=== PATIENT | male | born 1990 | race Caucasian/White ===

== ENCOUNTER 2017-06-29 19:34 | Emergency (ER) | payer SELFPAY ==
[2017-06-29] MEDS ORDERED: Sodium Chloride 0.9% 1000 ML 1,000 ML IV STA ×2 (20:16→21:11)
[2017-06-29] MEDS ORDERED: Sodium Chloride 0.9% 1000 ML 1,000 ML ONE (20:20)
[2017-06-29 20:25] LABS: BASOPHIL % 0.2 % (0.0-0.4); Basophil (Absolute #) 0.02 (0-0.4); Eosinophil % 1.1 % (0.00-5.0); Granulocyte Absolute (ANC) 6.09 (1.4-6.9); Granulocytes % 68.4 % (36.0-66.0); Hematocrit 49.2 % (42-50); Hemoglobin 16.5 gm/dl (12.5-18.0); Lymphocyte (Absolute #) 2.01 (1.0-4.6); Lymphocytes % 22.6 % (24.0-44.0); Mean Cell Volume 89.6 fl (78-100); Mean Corpuscular Hemoglobin 30.1 pg (26-32); Mean Corpuscular Hgb Concent. 33.5 g/dl (32-36); Mean Platelet Volume 10.3 fl (6-9.5); Monocyte (Absolute #) 0.69 (0.0-1.3); Monocytes % 7.7 % (0.0-12.0); Platelet Count 256 K/mm3 (150-450); Red Blood Count 5.49 M/mm3 (4.1-5.6); Red Cell Distribution Width 13.3 % (11.5-14.0); White Blood Count 8.9 K/mm3 (4.0-10.5)
--- NOTE | 2017-06-29 20:30 | ERPHSYRPT ---
- History of Present Illness Time Seen by Provider: 06/29/17 20:00 Source: patient Exam Limitations: clinical condition Patient Subjective Stated Complaint: Dysuria Triage Nursing Assessment: Pt states hx of kidney stones, seen at [place] in [place] for complaint. Pt states dysuria and hematuria since onset of pain 10 days ago. Pt states he was told he had a stone trapped in ureter on left side. Pt states pain is 2/10 at this time, no distress noted. Pt states that he has never had return of normal urine output since onset of pain. Physician History: PATIENT WITH A HISTORY OF KIDNEY STONES SINCE DECEMBER 2016, RECENTLY EVALUATED IN EMERGENCY AT [facility] 10 DAYS AGO, PLACED ON FLOMAX, TORADOL AND NORCO. ADMITS TO HAVING HEMATURIA EARLIER TODAY. DENIES FEVER OR CHILLS. Timing/Duration: today Activites at Onset: none Quality: sharpness, stabbing Onset Location: left flank, other (LEFT SIDED ABDOMINAL PAIN) Severity of Pain-Max: mild Severity of Pain-Current: mild Modifying Factors: Improves With: other (HEMATURIA) Prior abdominal problems: similar symptoms Sexual intercourse history: non-contributory Allergies/Adverse Reactions: latex Allergy (Mild, Verified 06/29/17 19:57) Hives citalopram [From Celexa] Allergy (Unknown, Verified 06/29/17 19:57) Home Medications: Hydrocodone Bit/Acetaminophen [[place] 5-325 Tablet] 1 each PO 06/29/17 [History] Ketorolac Tromethamine [Toradol] 10 mg PO DAILY 06/29/17 [History] Tamsulosin HCl 0.4 mg [Flomax 0.4 MG] 0.4 mg PO DAILY 06/29/17 [History] Hx Tetanus, Diphtheria Vaccination/Date Given: No Hx Influenza Vaccination/Date Given: No Hx Pneumococcal Vaccination/Date Given: No Immunizations Up to Date: No - Past Medical History Pertinent Past Medical History: No Neurological History: No Pertinent History ENT History: No Pertinent History Cardiac History: No Pertinent History Respiratory History: No Pertinent History Endocrine Medical History: No Pertinent History Musculoskeletal History: No Pertinent History GI Medical History: No Pertinent History History: Other Psycho-Social History: No Pertinent History Male Reproductive Disorders: No Pertinent History Other Medical History: Kidney stone, pylonephritis - Past Surgical History Past Surgical History: Yes Cardiac: No Pertinent History Respiratory: No Pertinent History Gastrointestinal: No Pertinent History Genitourinary: No Pertinent History Musculoskeletal: No Pertinent History Male Surgical History: No Pertinent History - Social History Smoking Status: Never smoker Exposure to second hand smoke: No Drug Use: none Patient Lives Alone: No - Review of Systems Constitutional: No Fever, No Chills Ears, Nose, & Throat: No Symptoms Respiratory: No Symptoms Cardiac: No Symptoms Abdominal/Gastrointestinal: Abdominal Pain Genitourinary Symptoms: Dysuria, Flank Pain, Other (HEMATURIA) Neurological: No Symptoms Psychological: No Symptoms - Nursing Vital Signs Nursing Vital Signs: Initial Vital Signs Temperature 98.2 F 06/29/17 19:44 Pulse Rate 92 H 06/29/17 19:44 Respiratory Rate 14 06/29/17 19:44 Blood Pressure 127/80 06/29/17 19:44 O2 Sat by Pulse Oximetry 100 06/29/17 19:44 Pain Scale Pain Intensity 0 - Physical Exam General Appearance: mild distress Eye Exam: PERRL/EOMI Ears, Nose, Throat Exam: normal ENT inspection Neck Exam: normal inspection Respiratory Exam: normal breath sounds Cardiovascular Exam: regular rate/rhythm Gastrointestinal/Abdomen Exam: soft, tenderness (LEFT LATERAL ABDOMEN) Male Genital Exam: normal genitalia Back Exam: normal inspection, CVA tenderness (MODERATE LEFT LATERAL CVA TENDERNESS) Extremity Exam: normal inspection Neurologic Exam: alert, oriented x 3, cooperative SpO2 Interpretation: normal SpO2: 100 Oxygen Delivery: Room Air - CT Exams Abdomen/Pelvis CT Interpretation: Tele-radiologist Report (SMALL NONOBSTRUCTIVE STONES ARE PRESENT IN THE KIDNEYS BILATERALLY,NO DISTAL URETERAL OAR BLADDER STONES IDENTIFIED, APPENDIX NORMAL ) Ordered Tests: Active Orders 24 hr Category Date Time Status ABDOMEN AND PELVIS W/0 CONTRAS [CT] Stat Exams 06/29/17 20:17 Taken BMP Stat Lab 06/29/17 20:10 Completed CBC W DIFF Stat Lab 06/29/17 20:10 Completed UA W/RFX UR CULTURE Stat Lab 06/29/17 20:17 Ordered Urine Triage Profile Stat Lab 06/29/17 20:17 Ordered Medication Summary Generic Name Dose Route Start Last Admin Trade Name Freq PRN Reason Stop Dose Admin Sodium Chloride 1,000 mls @ 999 mls/hr 06/29/17 21:11 Sodium Chloride 0.9% 1000 Ml IV 06/29/17 22:11 .Q1H1M STA Discontinued Medications Generic Name Dose Route Start Last Admin Trade Name Tan PRN Reason Stop Dose Admin Sodium Chloride 1,000 mls @ 999 mls/hr 06/29/17 20:16 06/29/17 20:23 Sodium Chloride 0.9% 1000 Ml IV 06/29/17 21:16 999 mls/hr .Q1H1M STA Administration Sodium Chloride Confirm 06/29/17 20:20 Sodium Chloride 0.9% 1000 Ml Administered 06/29/17 20:21 Dose 1,000 mls @ ud .ROUTE .STK-MED ONE Lab/Rad Data: Laboratory Result Diagrams 06/29/17 20:10 06/29/17 20:10 Laboratory Results 06/29/17 06/29/17 Range/Units 20:10 20:10 WBC 8.9 (4.0-10.5) K/mm3 RBC 5.49 (4.1-5.6) M/mm3 Hgb 16.5 (12.5-18.0) gm/dl Hct 49.2 (42-50) % MCV 89.6 (78-100) fl MCH 30.1 (26-32) pg MCHC 33.5 (32-36) g/dl RDW 13.3 (11.5-14.0) % Plt Count 256 (150-450) K/mm3 MPV 10.3 H (6-9.5) fl Gran % 68.4 H (36.0-66.0) % Lymphocytes % 22.6 L (24.0-44.0) % Monocytes % 7.7 (0.0-12.0) % Eosinophils % 1.1 (0.00-5.0) % Basophils % 0.2 (0.0-0.4) % Basophils # 0.02 (0-0.4) Sodium 136 (136-145) mEq/L Potassium 4.6 (3.5-5.1) mEq/L Chloride 104 (98-107) mEq/L Carbon Dioxide 18.3 L (21-32) mEq/L Anion Gap 18.7 H (5-15) MEQ/L BUN 16 (9-20) mg/dL Creatinine 0.73 (0.55-1.30) mg/dl Estimated GFR > 60 ML/MIN Glucose 82 (70-110) MG/DL Calcium 9.7 (8.5-10.1) mg/dL - Progress Progress Note: 06/29/17 20:34 IV NORMAL SALINE 1 LITER BOLUS , DENIES PAIN THROUGHOUT EMERGENCY ROOM VISIT 06/29/17 21:40 Counseled pt/family regarding: lab results, diagnosis, need for follow-up, rad results - Departure Time of Disposition: 21:50 Departure Disposition: Home Clinical Impression: BILATERAL NONOBSTRUCTION RENAL STONES Condition: Stable Critical Care Time: No Referrals: Provider,Unknown [Primary Care Provider] - Additional Instructions: CONTINUE ALL CURRENT MEDICATIONS. FOLLOWUP WITH YOUR PRIMARY CARE PROVIDER AND UROLOGIST AT HOME. VOID THROUGH STRAINER OVER THE NEXT WEEK.
[2017-06-29 20:39] LABS: ANION GAP 18.7 MEQ/L (5-15); BLOOD UREA NITROGEN 16 mg/dL (9-20); CHLORIDE 104 mEq/L (98-107); Calcium 9.7 mg/dL (8.5-10.1); Carbon Dioxide 18.3 mEq/L (21-32); Creatinine 1 0.73 mg/dl (0.55-1.30); EST GLOMERULAR FILTRATION RATE > 60 ML/MIN; Glucose 82 MG/DL (70-110); SODIUM 136 mEq/L (136-145)
[2017-06-29 20:41] LABS: Potassium 4.6 mEq/L (3.5-5.1)
[2017-06-29 21:55] VITALS: BP 125/62; PULSE 80; O2SAT 99
--- NOTE | 2017-06-30 06:28 | XRAY ---
Indication: Left flank pain with hematuria. History of stones. Multiple contiguous axial images obtained through the abdomen and pelvis without contrast using renal stone protocol. Comparison: None. Lung bases are clear. Heart is not enlarged. There are a few tiny nonobstructing bilateral renal micro-calculi. No distal ureteral calculus or evidence for obstructive uropathy. Noncontrasted stomach and bowel loops appear nonobstructed. Normal appendix. Minimal scattered colonic diverticulosis in the left hemicolon. No free fluid/air. Remaining liver, gallbladder, pancreas, spleen, adrenal glands, kidneys, ureters, bladder, and aorta appear unremarkable for noncontrast exam. Osseous structures intact. Impression: 1. Nonobstructing bilateral renal micro-calculi. 2. Colonic diverticulosis without diverticulitis. 3. No acute intra-abdominal/pelvic abnormalities on this noncontrast exam. Comment: Preliminary interpretation was made by [facility]. No critical discrepancy. CTDI 28.13
== END 2017-06-29 22:02 | disposition home or self-care (01) ==
LOC: ED 19:34
DX: N20.0 Calculus of kidney (principal); Z79.891 Long term (current) use of opiate analgesic
CPT/HCPCS: 36415; 74176; 80048; 85025; 96360; 99284